=== PATIENT | female | born 1955 | race American Indian/Alaskan Native ===

== ENCOUNTER 2021-02-05 11:54 | Outpatient (CLI) | payer BC ==
--- NOTE | 2021-03-09 09:58 | Mammography Report ---
DIGITAL SCREENING MAMMOGRAM WITH CAD, 02/05/2021 CLINICAL INFORMATION / INDICATION: Routine screening mammography. TECHNIQUE: Digital bilateral 2D mammography was obtained in the craniocaudal and mediolateral obliqu e projections. This examination was interpreted with the benefit of Computer-Aided Detection analysis . COMPARISON: None. Attempts were made to obtain prior mammograms from an out of [facility] facility [facility] were unsuccessful. FINDINGS: Breast Density: There are scattered areas of fibroglandular density. No dominant mass, suspicious calcifications, or architectural distortion in the left breast. There is a 1.5 cm focal density in the right breast at the 6:00 position middle depth which will requ annel additional evaluation. IMPRESSION: Right breast density as described which will require additional evaluation with spot comp ression views and possible ultrasound. Follow up recommendation: Special View: Spot BI-RADS Category 0: Incomplete. Needs additional imaging evaluation and/or prior mammograms for alissa rison. A "normal" or negative report should not discourage follow up or biopsy of a clinically significant f inding. A written summary of these findings will be mailed to the patient. The patient will be entered into a mammography reporting system which will generate a reminder letter for the patient's next appointmen t at the appropriate interval. The [employer] recommends yearly mammograms starting at age 40 and continuing as l juan miguel as a woman is in good health. Breast MRI is recommended for women with an approximate 20-25% or greater lifetime risk of breast cancer, including women with a strong family history of breast or ova yovani cancer or who have been treated for Hodgkin's disease. Signer Name: Kristin Yee MD Signed: 03/09/2021 9:53 AM Workstation Name: [employer]
== END 2021-02-05 11:55 | disposition home or self-care (01) ==
LOC: MAMMO 11:54
PROVIDERS: ATTEND Family Medicine
DX: Z12.31 Encounter for screening mammogram for malignant neoplasm of breast (principal)
CPT/HCPCS: 77067

== ENCOUNTER 2021-06-11 15:52 | Emergency (ER) | payer BC ==
[2021-06-11] MEDS ORDERED: cloNIDine 0.2 MG TAB PO ONE (16:22)
--- NOTE | 2021-06-11 16:43 | Emergency Department Report ---
HPI - General Chief Complaint: High BP Time Seen by Provider: 06/11/21 16:21 - HPI HPI: Room 37 The patient is a 65-year-old female present with a chief complaint of dyspnea on exertion. The patient has a history of nephrotic syndrome and states whenever she "has a flare" her symptoms include lower extremity edema and dyspnea on exertion. Patient states she has noticed an increase of her bilateral lower extremity edema with past 4-5 days for 1 day she has exhibited dyspnea on exertion. Patient denies shortness of breath at rest. Patient denies chest pain cough or fever. Patient states she has been compliant with all of her blood pressure medications including her Lasix (Lasix 40 mg daily). The patient states she has an appointment with her new lacquer sizer tomorrow morning but just wanted to get evaluated ED Past Medical Hx - Past Medical History Hx Hypertension: Yes Additional medical history: Nephrotic syndrome - Surgical History Additional Surgical History: x4, foot and hand surgery, breast biopsy (benign) - Family History Family history: no significant - Social History Smoking Status: Former Smoker (None x35 years) Substance Use Type: None (Denies illicit drug use), Alcohol (Occasional) ED Review of Systems ROS: Stated complaint: PROTEIN IN URINE Other details as noted in HPI Constitutional: denies: fever Eyes: denies: eye pain ENT: denies: throat pain Respiratory: SOB with exertion. denies: shortness of breath Cardiovascular: dyspnea on exertion. denies: chest pain Endocrine: no symptoms reported Gastrointestinal: denies: abdominal pain Genitourinary: denies: dysuria Musculoskeletal: denies: back pain Neurological: denies: headache Physical Exam - Physical Exam Vital Signs: Vital Signs 06/11/21 16:08 Temperature 98.3 F Pulse Rate 71 Respiratory 20 Rate Blood Pressure 248/116 [Right] O2 Sat by Pulse 97 Oximetry Vital Signs 06/11/21 06/11/21 06/11/21 16:08 17:11 17:19 Temperature 98.3 F Pulse Rate 71 Respiratory 20 Rate Blood Pressure 186/80 Blood Pressure 248/116 [Right] O2 Sat by Pulse 97 98 Oximetry 06/11/21 18:27 Temperature Pulse Rate 98 H Respiratory 18 Rate Blood Pressure Blood Pressure 143/70 [Right] O2 Sat by Pulse 98 Oximetry Physical Exam: GENERAL: The patient is well-developed well-nourished female sitting on stretcher not appearing to be in acute distress HEENT: Normocephalic. Atraumatic. Extraocular motions are intact. Patient has moist mucous membranes. NECK: Supple. Trachea midline CHEST/LUNGS: Clear to auscultation. There is no respiratory distress noted. HEART/CARDIOVASCULAR: Regular. There is no tachycardia. There is no gallop rub or murmur. ABDOMEN: Abdomen is soft, nontender. Patient has normal bowel sounds. There is no abdominal distention. SKIN: There is no rash. There is 1+ bilateral lower extremity pitting edema. There is no diaphoresis. NEURO: The patient is awake, alert, and oriented. The patient is cooperative. The patient has no focal neurologic deficits. The patient has normal speech. GCS 15. Normal gait MUSCULOSKELETAL: There is no evidence of acute injury. ED Course Vital Signs 06/11/21 16:08 Temperature 98.3 F Pulse Rate 71 Respiratory 20 Rate Blood Pressure 248/116 [Right] O2 Sat by Pulse 97 Oximetry ED Medical Decision Making - Lab Data Result diagrams: 06/11/21 16:40 06/11/21 16:40 Laboratory Tests 06/11/21 06/11/21 06/11/21 16:40 16:40 16:40 WBC 3.0 L RBC 4.44 Hgb 13.8 Hct 41.8 MCV 94 MCH 31 MCHC 33 RDW 13.4 Plt Count 212 Lymph % (Auto) 34.6 [place] % (Auto) 7.6 H Eos % (Auto) 6.0 H Baso % (Auto) 1.0 Lymph # (Auto) 1.0 L [place] # (Auto) 0.2 Eos # (Auto) 0.2 Baso # (Auto) 0.0 Seg Neutrophils % 50.8 Seg Neutrophils # 1.5 L PT 12.1 L INR 0.81 L Sodium 142 Potassium 4.3 Chloride 103.2 Carbon Dioxide 30 Anion Gap 13 BUN 17 Creatinine 0.6 Estimated GFR > 60 BUN/Creatinine Ratio 28 Glucose 76 Calcium 9.1 Total Bilirubin < 0.20 AST 27 ALT 28 Alkaline Phosphatase 71 Troponin T < 0.010 Total Protein 6.5 Albumin 3.6 L Albumin/Globulin Ratio 1.2 Urine Color Urine Turbidity Urine pH Ur Specific [place] Urine Protein Urine Glucose (UA) Urine Ketones Urine Blood Urine Nitrite Urine Bilirubin Urine Urobilinogen Ur Leukocyte Esterase Urine WBC (Auto) Urine RBC (Auto) U Epithel Cells (Auto) 06/11/21 17:16 WBC RBC Hgb Hct MCV MCH MCHC RDW Plt Count Lymph % (Auto) [place] % (Auto) Eos % (Auto) Baso % (Auto) Lymph # (Auto) [place] # (Auto) Eos # (Auto) Baso # (Auto) Seg Neutrophils % Seg Neutrophils # PT INR Sodium Potassium Chloride Carbon Dioxide Anion Gap BUN Creatinine Estimated GFR BUN/Creatinine Ratio Glucose Calcium Total Bilirubin AST ALT Alkaline Phosphatase Troponin T Total Protein Albumin Albumin/Globulin Ratio Urine Color Yellow Urine Turbidity Clear Urine pH 7.0 Ur Specific [place] 1.014 Urine Protein >500 Urine Glucose (UA) Neg Urine Ketones Neg Urine Blood Neg Urine Nitrite Neg Urine Bilirubin Neg Urine Urobilinogen < 2.0 Ur Leukocyte Esterase Neg Urine WBC (Auto) 1.0 Urine RBC (Auto) 2.0 U Epithel Cells (Auto) < 1.0 - EKG Data -: EKG Interpreted by Me EKG shows normal: sinus rhythm Rate: bradycardia (57 beats per) - EKG Data When compared to previous EKG there are: previous EKG unavailable Interpretation: nonspecific ST-T wave catie (T wave inversions laterally) - Radiology Data Radiology results: report reviewed (Chest x-ray), image reviewed (Chest x-ray) interpreted by me: Chest x-ray-no definite focal infiltrates, no pneumothorax [address] [address] XRay Report Signed Patient: VERÓNICA SCHAEFFER MR#: [id number] : [birth year] Acct:[id number] Age/Sex: 65 / F ADM Date: 06/11/21 Loc: ED Attending Dr: Ordering Physician: RASHAWN WRIGHT MD Date of Service: 06/11/21 Procedure(s): XR chest routine 2V Accession Number(s): [id number] cc: RASHAWN WRIGHT MD Fluoro Time In Minutes: CHEST 2 VIEWS INDICATION / CLINICAL INFORMATION: Dyspnea on exertion. COMPARISON: None available. FINDINGS: SUPPORT DEVICES: None. HEART / MEDIASTINUM: No significant abnormality. LUNGS / PLEURA: No significant pulmonary or pleural abnormality. No pneumothorax. ADDITIONAL FINDINGS: No significant additional findings. IMPRESSION: 1. No acute findings. Signer Name: Luc Johns MD Signed: 06/11/2021 5:11 PM Workstation Name: [id number] Transcribed By: ANA Dictated By: Luc Johns MD Electronically Authenticated By: Luc Johns MD Signed Date/Time: 06/11/211710 DD/ 10 TD/TT: Print Cancel - Medical Decision Making Patient's 2-minute walking SPO2 99% on room air - Differential Diagnosis Nephrotic syndrome, CHF, pulmonary edema, hypertensive urgency Critical care attestation.: If time is entered above; I have spent that time in minutes in the direct care of this critically ill patient, excluding procedure time. ED Disposition Clinical Impression: Uncontrolled hypertension, Proteinuria, Peripheral edema Disposition: HOME / SELF CARE / HOMELESS Is pt being admited?: No Does the pt Need Aspirin: No Condition: Stable Instructions: Hypertension (ED) Additional Instructions: You should increase your Lasix to 60 mg daily for 7 days. Return to the emergency department should you develop worsening symptoms, inability to kaley ate food or liquids, high fever or any other concerns Referrals: PRIMARY CARE, [Primary Care Provider] - 3-5 Days Your, lacquer sizer [Other] - 06/12/21 Time of Disposition: 20:20
--- NOTE | 2021-06-11 17:15 | XRay Report ---
CHEST 2 VIEWS INDICATION / CLINICAL INFORMATION: Dyspnea on exertion. COMPARISON: None available. FINDINGS: SUPPORT DEVICES: None. HEART / MEDIASTINUM: No significant abnormality. LUNGS / PLEURA: No significant pulmonary or pleural abnormality. No pneumothorax. ADDITIONAL FINDINGS: No significant additional findings. IMPRESSION: 1. No acute findings. Signer Name: Luc Johns MD Signed: 06/11/2021 5:11 PM Workstation Name: [id number]
[2021-06-11 17:21] LABS: Eosinophils # (Auto) 0.2 K/mm3 (0.0-0.4); Hematocrit 41.8 % (30.3-42.9); Hemoglobin 13.8 gm/dl (10.1-14.3); Lymphocytes % (Auto) 34.6 % (13.4-35.0); Mean Corpuscular HGB Conc 33 % (30-34); Mean Corpuscular Volume 94 fl (79-97); Monocytes # (Auto) 0.2 K/mm3 (0.0-0.8); Monocytes % (Auto) 7.6 % (0.0-7.3); Platelet Count 212 K/mm3 (140-440); Red Blood Count 4.44 M/mm3 (3.65-5.03); Red Cell Distribution Width 13.4 % (13.2-15.2)
[2021-06-11 17:26] LABS: INR 0.81 (0.87-1.13)
[2021-06-11 17:34] LABS: Alanine Aminotransferase 28 units/L (7-56); Albumin 3.6 g/dL (3.9-5); BUN/Creatinine Ratio 28; Blood Urea Nitrogen 17 mg/dL (7-17); Calcium 9.1 mg/dL (8.4-10.2); Hemolysis Index 12
[2021-06-11 17:37] LABS: Bilirubin,Urine NEG (Negative); Blood,Urine NEG (Negative); Color,Urine Yellow (Yellow); Urobilinogen,Urine < 2.0 mg/dL (<2.0)
[2021-06-11 17:41] LABS: Protein,Urine >500 mg/dL (Negative)
[2021-06-11 20:05] VITALS: BP 136/58
--- NOTE | 2021-06-12 09:32 | Electrocardiograph Report ---
[facility] Test Date: 2021-06-11 Test Time: 18:42:43 Pat Name: VERÓNICA SCHAEFFER Department: Room: Gender: F Burrer Hand: [place] [id number] : 1955 Requested By: RASHAWN WRIGHT Order Number: [id number] Reading MD: Herman Caballero Measurements Intervals [place] Rate: 57 P: 67 WI: 208 QRS: 20 QRSD: 96 T: 35 QT: 443 QTc: 430 Interpretive Statements Sinus bradycardia Probable left atrial enlargement nonspecific st-t No previous ECG available for comparison Electronically Signed On 06-12-2021 9:32:30 EDT by Herman Caballero
== END 2021-06-11 21:15 | disposition home or self-care (01) ==
LOC: ED 15:52
DX: I10 Essential (primary) hypertension (principal); R80.9 Proteinuria, unspecified; R60.0 Localized edema; Z87.891 Personal history of nicotine dependence; Z72.89 Other problems related to lifestyle; Z98.890 Other specified postprocedural states; Z79.899 Other long term (current) drug therapy
CPT/HCPCS: 36415; 71046; 80053; 81001; 84484; 85025; 85610; 93005; 99284

== ENCOUNTER 2021-06-25 11:08 | Emergency (ER) | payer BC ==
--- NOTE | 2021-06-25 12:49 | Emergency Department Report ---
Upper Extremity - HPI Chief Complaint: Extremity Injury, Upper Stated Complaint: SHOULDER PAIN Upper Extremity: Right Shoulder Occurred When: 4 Days Mechanism: Unsure Symptoms: Yes Pain with Movement, No Deformity, No Limited Range of Movement, No Numbness, No Weakness, No Swelling, No Bruising/Ecchymosis, No Laceration or Abrasion Other History: 65-year-old pleasant -[place] female presents to the emergency room for left shoulder pain and left neck pain that started 4 days ago. Patient denies any particular injury. 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 Patient states she has been using heat and cold compresses. She has tried ddbj-tqc-mmonbhq BenGay liniment. She has been taking Tylenol. ED Review of Systems ROS: Stated complaint: SHOULDER PAIN Other details as noted in HPI Comment: All other systems reviewed and negative ED Past Medical Hx - Past Medical History Hx Hypertension: Yes Additional medical history: Nephrotic syndrome - Surgical History Additional Surgical History: x4, foot and hand surgery, breast biopsy (benign) - Social History Smoking Status: Former Smoker (None x35 years) Substance Use Type: None (Denies illicit drug use), Alcohol (Occasional) - Medications Home Medications: Home Medications Medication Instructions Recorded Confirmed Last Taken Type Acetaminophen [Acetaminophen 8 650 mg PO Q8H PRN #30 tablet.er 06/25/21 Unknown Rx Hour] methOCARBAMOL [Robaxin TAB] 500 mg PO BID #20 tab 06/25/21 Unknown Rx Upper Extremity Exam - Exam General: Vital signs noted. No distress. Alert and acting appropriately. Head and Torso: Yes Neck Tenderness (Left trapeze tenderness), No HEENT Abnormality, No Chest/Lungs Abnormality, No Abdominal Tenderness, No Back Tenderness Shoulder Exam: Yes Shoulder Tenderness, Yes Normal Range of Motion in Shoulder, Yes AC Joint Tenderness, No Clavicle Tenderness, No Shoulder Deformity Arm Exam: No Arm/Humerus Tenderness, No Arm Deformity Elbow: No Elbow Tenderness, No Normal Range of Motion in Elbow, No Elbow Deformi ty Forearm: No Forearm Tenderness, No Forearm Deformity, No Pain with Pronation, No Pain with Supination Hand: Yes Normal ROM in Digit(s), No Hand Tenderness, No Hand Deformity, No Digit Tenderness, No Digit(s) Deformity, No Tendon Dysfunction CMS Exam: No Broken Skin, No Normal Distal Pulses, No Normal Capillary Refill, No Normal Distal Sensation ED Course Vital Signs 06/25/21 11:13 Temperature 98.4 F Pulse Rate 68 Respiratory 18 Rate Blood Pressure 169/82 O2 Sat by Pulse 97 Oximetry ED Medical Decision Making - Radiology Data Radiology results: report reviewed Comments [facility] [address] [place] [address] XRay Report Signed Patient: VERÓNICA SCHAEFFER MR#: [id number] : 1955 Acct:[id number] Age/Sex: 65 / F ADM Date: 06/25/21 Loc: ED Attending Dr: Ordering Physician: KEV LORENZ Date of Service: 06/25/21 Procedure(s): XR shoulder 2+V LT Accession Number(s): [id number] cc: KEV LORENZ Fluoro Time In Minutes: LEFT SHOULDER 3 VIEW(S) INDICATION / CLINICAL INFORMATION: Acute left shoulder pain COMPARISON: None available. FINDINGS: BONES / JOINT(S): No acute fracture or subluxation. No significant arthritis. SOFT TISSUES: No significant abnormality. ADDITIONAL FINDINGS: None. Signer Name: Dmitry Arthur DO Signed: 06/25/2021 1:22 PM Workstation Name: [id number] Transcribed By: ROGELIO Dictated By: DMITRY ARTHUR DO Electronically Authenticated By: DMITRY ARTHUR DO Signed Date/Time: 06/25/21 132 DD/ 1322 TD/TT: - Medical Decision Making 65-year-old pleasant -[place] female presents to the emergency room for left shoulder pain and left neck pain that started 4 days ago. Patient denies any particular injury. 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 Patient states she has been using heat and cold compresses. She has tried stxj-ifq-qkxctxn BenGay liniment. She has been taking Tylenol. X-ray of left shoulder has been ordered. Patient complained of pain acetaminophen 1 g was given p.o. X-ray results shows no acute abnormalities or arthritis. Will refer patient to orthopedics for further evaluation. Critical care attestation.: If time is entered above; I have spent that time in minutes in the direct care of this critically ill patient, excluding procedure time. ED Disposition Clinical Impression: Left anterior shoulder pain Disposition: 01 HOME / SELF CARE / HOMELESS Is pt being admited?: No Does the pt Need Aspirin: No Condition: Stable Instructions: Joint Pain, Yheb-ci-Ynux Additional Instructions: X-ray of left shoulder shows no acute abnormalities. I would like for you to follow-up with an precision farming specialist. Please take your pain medication as needed. Prescriptions: Acetaminophen [Acetaminophen 8 Hour] 650 mg PO Q8H PRN #30 tablet.er PRN Reason: Pain , Severe (7-10) methOCARBAMOL [Robaxin TAB] 500 mg PO BID #20 tab Referrals: PRIMARY CAREMD [Primary Care Provider] - 3-5 Days DARLENE HILL MD [Staff Physician] - 3-5 Days FRANCISCA CUEVAS MD [Staff Physician] - 3-5 Days ALEJANDRO MUÑOZ MD [Staff Physician] - 3-5 Days Forms: Work/School Release Form(ED) Time of Disposition: 13:38
[2021-06-25] MEDS ORDERED: ACETAMINOPHEN 500 MG TAB PO ONE (13:06)
--- NOTE | 2021-06-25 13:27 | XRay Report ---
LEFT SHOULDER 3 VIEW(S) INDICATION / CLINICAL INFORMATION: Acute left shoulder pain COMPARISON: None available. FINDINGS: BONES / JOINT(S): No acute fracture or subluxation. No significant arthritis. SOFT TISSUES: No significant abnormality. ADDITIONAL FINDINGS: None. Signer Name: Dmitry Stephens DO Signed: 06/25/2021 1:22 PM Workstation Name: [id number]
[2021-06-25 14:12] VITALS: BP 162/84
== END 2021-06-25 14:07 | disposition home or self-care (01) ==
LOC: ED 11:08
DX: M25.512 Pain in left shoulder (principal); I10 Essential (primary) hypertension; Z87.891 Personal history of nicotine dependence
CPT/HCPCS: 99283

== ENCOUNTER 2021-07-10 15:12 | Outpatient (CLI) | payer BC ==
[2021-07-10 15:53] LABS: Creatinine,Urine 219.1 mg/dL (0.1-20.0)
[2021-07-10 16:03] LABS: Albumin 3.6 g/dL (3.9-5); Blood Urea Nitrogen 11 mg/dL (7-17); Calcium 8.3 mg/dL (8.4-10.2); Hemolysis Index 6
[2021-07-10 16:04] LABS: BUN/Creatinine Ratio 18
[2021-07-10 16:05] LABS: Protein/Creatinine Ratio,Urine 1.8
== END 2021-07-10 15:13 | disposition home or self-care (01) ==
LOC: LAB 15:12
PROVIDERS: ATTEND Internal Medicine Nephrology
DX: N04.2 Nephrotic syndrome with diffuse membranous glomerulonephritis (principal)
CPT/HCPCS: 36415; 80048; 82040; 82570; 83735; 84100; 84156

== ENCOUNTER 2022-01-21 09:48 | Outpatient (CLI) | payer BC ==
[2022-01-21 11:11] LABS: Hematocrit 39.7 % (30.3-42.9); Hemoglobin 13.3 gm/dl (10.1-14.3); Mean Corpuscular HGB Conc 34 % (30-34); Mean Corpuscular Volume 94 fl (79-97); Platelet Count 172 K/mm3 (140-440); Red Blood Count 4.22 M/mm3 (3.65-5.03); Red Cell Distribution Width 13.7 % (13.2-15.2)
[2022-01-21 11:12] LABS: Bilirubin,Urine NEG (Negative); Blood,Urine NEG (Negative); Color,Urine Yellow (Yellow); Urobilinogen,Urine < 2.0 mg/dL (<2.0)
[2022-01-21 11:14] LABS: Mucus,Urine FEW /HPF
[2022-01-21 11:37] LABS: Alanine Aminotransferase 21 units/L (7-56); Blood Urea Nitrogen 11 mg/dL (7-17); Calcium 9.2 mg/dL (8.4-10.2); Chol/HDL Ratio 2.27 %; HDL Cholesterol 74 mg/dL (40-59); Hemolysis Index 9; LDL Cholesterol,Direct 85 mg/dL (50-130)
[2022-01-21 11:38] LABS: BUN/Creatinine Ratio 18
[2022-01-21 12:32] LABS: Creatinine,Urine 169.2 mg/dL (0.1-20.0)
[2022-01-21 12:35] LABS: Microalbumin/Creatinine Ratio 683.8 ug/mg
[2022-01-21 12:43] LABS: Basophils % (Manual) 0 % (0.0-1.8); Total Cells Counted 100
[2022-01-21 12:45] LABS: Platelet Estimate Consistent w Auto; RBC Morphology Normal
== END 2022-01-21 09:49 | disposition home or self-care (01) ==
LOC: LAB 09:48
PROVIDERS: ATTEND Internal Medicine
DX: I10 Essential (primary) hypertension (principal); E66.9 Obesity, unspecified; E55.9 Vitamin D deficiency, unspecified
CPT/HCPCS: 36415; 80053; 80061; 81001; 82043; 82306; 84443; 85007; 85025

== ENCOUNTER 2022-01-29 14:07 | Outpatient (CLI) | payer BC ==
--- NOTE | 2022-01-29 15:41 | Mammography Report ---
DIGITAL DIAGNOSTIC MAMMOGRAM WITH CAD CONVENTIONAL, 01/29/2022 CLINICAL INFORMATION / INDICATION: Patient presents for follow-up of a previously seen focal asymmetr ic density in the right breast. Patient has a history of benign right breast biopsy. R92.8 TECHNIQUE: Digital bilateral mammographic imaging was performed. This examination was interpreted with the benefit of Computer-aided Detection analysis. COMPARISON: Prior mammograms 02/05/2021 and 01/28/2017 FINDINGS: Breast Density: There are scattered areas of fibroglandular density. No dominant mass, suspicious calcifications or architectural distortion in either breast. There is benign postsurgical change in the upper outer quadrant of the right breast. The previously d escribed focal asymmetric density in the central to 6:00 position of the right breast, anterior to mi ddle depth, is not appreciably changed compared with prior mammogram from 2017 and is therefore consi dered benign. IMPRESSION: No mammographic evidence of malignancy. Follow up recommendation: Routine yearly screening mammogram. BI-RADS Category 2: BENIGN. A "normal" or negative report should not discourage follow up or biopsy of a clinically significant f inding. A written summary of these findings will be mailed to the patient. The patient will be entered into a mammography reporting system which will generate a reminder letter for the patient's next appointmen t at the appropriate interval. According to the [employer], yearly mammograms are recommended starting at age 40 and continuing as long as a woman is in good health. Breast MRI is recommended for women with an dennis roximately 20-25% or greater lifetime risk of breast cancer, including women with a strong family his tory of breast or ovarian cancer and women who have been treated for Hodgkin's disease. Signer Name: Patricia Allen MD Signed: 01/29/2022 3:35 PM Workstation Name: [email or web address]
== END 2022-01-29 14:08 | disposition home or self-care (01) ==
LOC: MAMMO 14:07
PROVIDERS: ATTEND Internal Medicine
DX: R92.8 Other abnormal and inconclusive findings on diagnostic imaging of breast (principal)
CPT/HCPCS: 77066